=== PATIENT | female | born 2000 | race Two or more races ===

== ENCOUNTER 2024-11-05 22:05 | Emergency (ER) | payer OTHER, SELFPAY ==
[2024-11-05 22:06] VITALS: BMI 311.1
[2024-11-05 22:43] VITALS: BP 115/85; PULSE 80; RESP 18; TEMP 36.9; O2SAT 98
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
[2024-11-05] MEDS: ACETAMINOPHEN 500 MG TABLET 1000 MG PO (23:02)
--- NOTE | 2024-11-05 23:12 | PC.NURSE ---
Pt to CT scan at this time from lobby.
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
[2024-11-06 00:16] VITALS: RESP 18
== END 2024-11-06 00:16 | disposition home or self-care (01) ==
LOC: SERX 11-06 00:39
PROVIDERS: Emergency Provider Emergency Medicine; PCP Physician Assistant
DX: S09.93XA Unspecified injury of face, initial encounter (principal); S09.90XA Unspecified injury of head, initial encounter; H57.11 Ocular pain, right eye; M54.2 Cervicalgia; V89.2XXA Person injured in unspecified motor-vehicle accident, traffic, initial encounter
CPT/HCPCS: 70450; 70486; 72125; 99284; A9270